=== PATIENT | female | born 1995 | race Caucasian/White ===

== ENCOUNTER 2021-07-30 17:24 | Emergency (ER) | payer OTHER ==
[2021-07-30 18:28] LABS: HEMOGLOBIN 12.2 gm/dl (12.3-15.3); RED BLOOD COUNT 4.98 M/UL (4.00-5.10); WHITE BLOOD COUNT 6.6 K/UL (4.5-11.0)
[2021-07-30 18:56] LABS: BUN/CREATININE RATIO 15 (0-10)
[2021-07-30] MEDS ORDERED: MACROBID 100 M100 MG PO (21:47)
[2021-07-30] MEDS ORDERED: ZOFRAN ODT 4 MG4 MG SL (21:47)
== END 2021-07-30 22:38 | disposition home or self-care (01) ==
LOC: ER1 17:24
PROVIDERS: Physician Assistant
DX: N39.0 Urinary tract infection, site not specified (principal); R11.0 Nausea; Z20.822 Contact with and (suspected) exposure to COVID-19
CPT/HCPCS: 80048; 81001; 84703; 85025; 87077; 87086; 87186; 93005; 96374; 96375; 99284; J0696; J1885; J2405; U0003